=== PATIENT | male | born 1960 | race Caucasian/White ===

== ENCOUNTER → 2018-09-13 | Day surgery (SDC) | payer OTHER ==
[~2018-09-13] MED LIST: ADVAIR 500/501 EA INH; ALBUTEROL0.63 MG/3 INH; ASPIR 8181 MG PO; BC POWDER PACK1 EAC1 PO; CETIRIZINE HCL10 MG PO; COMBIVENT RESPIM4 GM IH; EFFIENT10 MG PO; FENTANYL CITRATE/PF 100MCG/2 ML INJ ONE; IOPAMIDOL 200 MG/ML 20 ML VIAL IT ONE; ISOSORBIDE MONO30 MG PO; LIDOCAINE HCL 1% 30ML-PF VIAL ONE; LIDOCAINE HCL 2% LOCAL INJ 5 ML SDV VIAL INJ ONE; LOSARTAN POTAS100 MG PO; METOPROLOL TART50 MG PO; MIDAZOLAM HCL 2 MG/2 ML VIAL ONE; NEXIUM2.5 MG PO; PRAVASTATIN SOD40 MG PO; PROAIR HFA INH8.5 GM INH; PROPOFOL IV EMULSION 10 MG/ML 20 ML VIAL ONE; SERTRALINE HCL50 MG PO; TRIAMCINOLONE ACET 40 MG/ML VIAL ONE
[2018-09-13 06:26] LABS: BASOPHILS # (AUTO) 0.1 (0.0-0.1); BASOPHILS % 1.3 % (0.0-1.0); EOSINOPHILS # (AUTO) 0.4 (0.0-0.4); EOSINOPHILS % 7.7 % (0.0-6.0); HEMATOCRIT 36.3 % (38.2-49.6); HEMOGLOBIN 11.6 g/dL (14.0-18.0); LYMPHOCYTES # (AUTO) 1.5 (1.0-3.2); LYMPHOCYTES % 27.5 % (18.0-39.1); MEAN CORPUSCULAR HEMOGLOBIN 26.1 pg (28-32); MEAN CORPUSCULAR VOLUME 81.8 fL (81-99); MONOCYTES # (AUTO) 0.6 (0.2-0.8); MONOCYTES % 10.9 % (4.4-11.3); NEUTROPHILS # (AUTO) 2.9 (2.1-6.9); NEUTROPHILS % 52.4 % (38.7-80.0); PLATELET COUNT 301 x10e3/uL (140-360); RED BLOOD COUNT 4.44 x10e6/uL (4.3-5.7); RED CELL DISTRIBUTION WIDTH 19.7 % (11.7-14.4)
[2018-09-13 08:00] VITALS: BP 120/60
== END | disposition home or self-care (01) ==
LOC: OR 05:21
PROVIDERS: ATTEND Physical Medicine & Rehabilitation Pain Medicine
DX: M47.812 Spondylosis without myelopathy or radiculopathy, cervical region (principal); M54.5 Low back pain; M25.532 Pain in left wrist; M54.12 Radiculopathy, cervical region; M85.441 Solitary bone cyst, right hand; I25.10 Atherosclerotic heart disease of native coronary artery without angina pectoris; J44.9 Chronic obstructive pulmonary disease, unspecified; I10 Essential (primary) hypertension; Z79.82 Long term (current) use of aspirin; Z95.5 Presence of coronary angioplasty implant and graft; Z87.891 Personal history of nicotine dependence
CPT/HCPCS: 36415; 64490; 64491; 64492; 85025; 93005; J2001 ×2; J2250; J2704; J3010; J3301; Q9967; 77003

== ENCOUNTER → 2018-12-27 | Day surgery (SDC) | payer OTHER ==
[2018-12-26 12:53] LABS: BASOPHILS # (AUTO) 0.1 (0.0-0.1); BASOPHILS % 0.9 % (0.0-1.0); EOSINOPHILS # (AUTO) 0.5 (0.0-0.4); EOSINOPHILS % 6.3 % (0.0-6.0); HEMATOCRIT 36.1 % (38.2-49.6); HEMOGLOBIN 11.1 g/dL (14.0-18.0); LYMPHOCYTES # (AUTO) 1.2 (1.0-3.2); LYMPHOCYTES % 15.6 % (18.0-39.1); MEAN CORPUSCULAR HGB CONC 30.7 g/dL (31-35); MEAN CORPUSCULAR VOLUME 78.1 fL (81-99); MONOCYTES # (AUTO) 0.6 (0.2-0.8); MONOCYTES % 8.2 % (4.4-11.3); NEUTROPHILS # (AUTO) 5.1 (2.1-6.9); NEUTROPHILS % 68.7 % (38.7-80.0); PLATELET COUNT 392 x10e3/uL (140-360); RED BLOOD COUNT 4.62 x10e6/uL (4.3-5.7); RED CELL DISTRIBUTION WIDTH 15.8 % (11.7-14.4)
[~2018-12-27] MED LIST changes: +BUPIVACAINE 0.25% 30ML SDV INJ ONE; -IOPAMIDOL 200 MG/ML 20 ML VIAL IT ONE; +IOPAMIDOL 300 MG/ML 15ML VIAL IT ONE
[2018-12-27 08:55] VITALS: BP 121/83
== END | disposition home or self-care (01) ==
LOC: OR 07:05
PROVIDERS: ATTEND Physical Medicine & Rehabilitation Pain Medicine
DX: M46.1 Sacroiliitis, not elsewhere classified (principal); G57.00 Lesion of sciatic nerve, unspecified lower limb; M79.18 Myalgia, other site; J44.9 Chronic obstructive pulmonary disease, unspecified; I10 Essential (primary) hypertension; K21.9 Gastro-esophageal reflux disease without esophagitis; M47.812 Spondylosis without myelopathy or radiculopathy, cervical region; M25.532 Pain in left wrist; M54.81 Occipital neuralgia; M25.841 Other specified joint disorders, right hand; R93.7 Abnormal findings on diagnostic imaging of other parts of musculoskeletal system; I25.10 Atherosclerotic heart disease of native coronary artery without angina pectoris; Z01.810 Encounter for preprocedural cardiovascular examination; Z01.812 Encounter for preprocedural laboratory examination; Z79.02 Long term (current) use of antithrombotics/antiplatelets; Z79.82 Long term (current) use of aspirin; Z95.5 Presence of coronary angioplasty implant and graft
CPT/HCPCS: 20552; G0260; 36415; 76000; 85025; 93005; J2001; J2250; J3010; J3301; Q9967

== ENCOUNTER → 2021-04-22 | Day surgery (SDC) | payer BC, OTHER ==
[2021-04-20 08:38] LABS: BASOPHILS # (AUTO) 0.1 (0.0-0.1); BASOPHILS % 1.3 % (0.0-1.0); EOSINOPHILS # (AUTO) 0.7 (0.0-0.4); EOSINOPHILS % 16.1 % (0.0-6.0); HEMATOCRIT 44.2 % (38.2-49.6); HEMOGLOBIN 15.1 g/dL (14.0-18.0); LYMPHOCYTES # (AUTO) 0.9 (1.0-3.2); LYMPHOCYTES % 19.6 % (18.0-39.1); MEAN CORPUSCULAR HEMOGLOBIN 32.8 pg (28-32); MEAN CORPUSCULAR HGB CONC 34.2 g/dL (31-35); MEAN CORPUSCULAR VOLUME 95.9 fL (81-99); MONOCYTES # (AUTO) 0.6 (0.2-0.8); MONOCYTES % 13.9 % (4.4-11.3); NEUTROPHILS # (AUTO) 2.3 (2.1-6.9); NEUTROPHILS % 48.9 % (38.7-80.0); PLATELET COUNT 223 x10e3/uL (140-360); RED BLOOD COUNT 4.61 x10e6/uL (4.3-5.7); RED CELL DISTRIBUTION WIDTH 13.9 % (11.7-14.4)
[~2021-04-22] MED LIST changes: +ATORVASTATIN CA20 MG PO; +BACLOFEN10 MG PO; -BUPIVACAINE 0.25% 30ML SDV INJ ONE; +BUPIVACAINE HCL 0.5% INJ 30 ML VIAL INJ ONE; +ESMOLOL HCL 100MG/10ML 10 MG/ML VIAL ONE; -FENTANYL CITRATE/PF 100MCG/2 ML INJ ONE; +HYDROCODON-ACE1 EAC9 PO; +IOPAMIDOL 200 MG/ML 20 ML VIAL IT ONE; -IOPAMIDOL 300 MG/ML 15ML VIAL IT ONE; -LIDOCAINE HCL 2% LOCAL INJ 5 ML SDV VIAL INJ ONE; +POVIDONE IODINE 0.05% 0.05 % ML PO ONE; -TRIAMCINOLONE ACET 40 MG/ML VIAL ONE
[2021-04-22 07:15] VITALS: BP 121/99
== END | disposition home or self-care (01) ==
LOC: OR 06:36
PROVIDERS: ATTEND Physical Medicine & Rehabilitation Pain Medicine
DX: M47.892 Other spondylosis, cervical region (principal); G89.4 Chronic pain syndrome; M46.1 Sacroiliitis, not elsewhere classified; G57.00 Lesion of sciatic nerve, unspecified lower limb; M54.81 Occipital neuralgia; J44.9 Chronic obstructive pulmonary disease, unspecified; I25.10 Atherosclerotic heart disease of native coronary artery without angina pectoris; I10 Essential (primary) hypertension; E78.5 Hyperlipidemia, unspecified; K21.9 Gastro-esophageal reflux disease without esophagitis; Z01.810 Encounter for preprocedural cardiovascular examination; Z01.812 Encounter for preprocedural laboratory examination; Z20.822 Contact with and (suspected) exposure to COVID-19; Z79.82 Long term (current) use of aspirin; Z79.899 Other long term (current) drug therapy; Z95.5 Presence of coronary angioplasty implant and graft
CPT/HCPCS: 36415; 64490; 64491; 64492; 85025; 93005; J2001; J2250; J2704; Q9967; U0002; 77003

== ENCOUNTER 2021-08-01 13:10 | Inpatient (IN) | payer BC ==
[~2021-08-01] VITALS: Ht 172.7 cm; Wt 79.4 kg
[~2021-08-01 13:10] MED LIST changes: +ATROPINE SULFATE 1 MG/ML VIAL ONE; -BUPIVACAINE HCL 0.5% INJ 30 ML VIAL INJ ONE; +DEXAMETHASONE SOD PHOS INJ 4 MG/ML SDV ONE; -ESMOLOL HCL 100MG/10ML 10 MG/ML VIAL ONE; +FENTANYL CITRATE/PF 100MCG/2 ML INJ ONE; -IOPAMIDOL 200 MG/ML 20 ML VIAL IT ONE; +KETOROLAC TROMETHAMINE 30 MG/ML VIAL ONE; -LIDOCAINE HCL 1% 30ML-PF VIAL ONE; +LIDOCAINE HCL 2% LOCAL INJ 5 ML SDV VIAL INJ ONE; +NEOSTIGMINE 1 MG/ML 10ML VIAL ONE; +ONDANSETRON HCL INJ 2MG/ML 2ML 2 MG/ML VIAL ONE; +ROCURONIUM BROMIDE 10 MG/ML 5ML VIAL IV ONE; +SEVOFLURANE INHAL SOLN 250 ML PEN BTL ONE; +SUCCINYLCHOLINE CHLORIDE 20 MG/ML 10ML VIAL ONE
[2021-08-01] MEDS ORDERED: Morphine 4mg INJECTION 4 MG/ML INJ IV STA (13:20)
[2021-08-01] MEDS ORDERED: ONDANSETRON HCL INJ 2MG/ML 2ML 2 MG/ML VIAL IV STA (13:20)
[2021-08-01] MEDS ORDERED: SODIUM CHLORIDE 0.9% 1000ML 1,000 ML IV STA ×2 (13:20→13:55)
[2021-08-01 13:41] LABS: BASOPHILS # (AUTO) 0.1 (0.0-0.1); BASOPHILS % 0.4 % (0.0-1.0); EOSINOPHILS # (AUTO) 0.2 (0.0-0.4); HEMATOCRIT 36.9 % (38.2-49.6); HEMOGLOBIN 12.3 g/dL (14.0-18.0); LYMPHOCYTES % 8.2 % (18.0-39.1); MEAN CORPUSCULAR HEMOGLOBIN 33.6 pg (28-32); MEAN CORPUSCULAR HGB CONC 33.3 g/dL (31-35); MEAN CORPUSCULAR VOLUME 100.8 fL (81-99); MONOCYTES # (AUTO) 0.8 (0.2-0.8); MONOCYTES % 6.4 % (4.4-11.3); NEUTROPHILS % 82.6 % (38.7-80.0); PLATELET COUNT 410 x10e3/uL (140-360); RED BLOOD COUNT 3.66 x10e6/uL (4.3-5.7); RED CELL DISTRIBUTION WIDTH 14.9 % (11.7-14.4)
[2021-08-01 13:52] LABS: INR 0.91; PROTHROMBIN TIME 13.1 seconds (11.9-14.5)
[2021-08-01 13:53] LABS: PARTIAL THROMBOPLASTIN TIME 29.4 seconds (23.8-35.5)
[2021-08-01 14:03] LABS: ALBUMIN 3.8 g/dL (3.5-5.0); ALBUMIN/GLOBULIN RATIO 1.2 (0.8-2.0); ANION GAP 19.6 mmol/L (8-16); CALCIUM 8.8 mg/dL (8.4-10.2); CREATININE, SERUM 0.8 mg/dL (0.72-1.25); MAGNESIUM 1.7 MG/DL (1.3-2.1); POTASSIUM 3.6 mmol/L (3.5-5.1)
[2021-08-01 14:09] LABS: CREATINE KINASE MB 1.9 ng/mL (0-5.0)
[2021-08-01] MEDS ORDERED: IOPAMIDOL 370 MG/ML 100 ML INFUS..BTL INJ ONE (14:30)
[2021-08-01] MEDS ORDERED: BENZOCAINE/TETRACAINE/BUTAMBEN AERO SPRAY 56 GM CAN TOP ONE (17:00)
[2021-08-01] MEDS ORDERED: SODIUM CHLORIDE 0.9% 1000ML 1,000 ML IV SCH (17:00)
[2021-08-01] MEDS: SODIUM CHLORIDE 0.9% 250ML IRRIG IR SCH ×2 (17:30→21:00)
[2021-08-01] MEDS: ONDANSETRON HCL INJ 2MG/ML 2ML 2 MG/ML VIAL IV PRN (17:31)
[2021-08-01] MEDS: Morphine 4mg INJECTION 4 MG/ML INJ IV PRN (17:31)
[2021-08-01 17:33] LABS: CLARITY,URINE HAZY (CLEAR); COLOR,URINE YELLOW (YELLOW); KETONES,URINE NEGATIVE (NEGATIVE); LEUKOCYTE ESTERASE ,URINE NEGATIVE (NEGATIVE); NITRITE,URINE NEGATIVE (NEGATIVE); PROTEIN,URINE DIPSTICK NEGATIVE (NEGATIVE)
[2021-08-01 17:34] LABS: URINE UROBILINOGEN 0.2 mg/dL (0.2 - 1)
[2021-08-01 17:48] LABS: BACTERIA,URINE FEW /HPF; EPITHELIAL CELLS,URINE FEW /LPF; RBC,URINE 0-5 /HPF (0-5); WBC,URINE (MAN) 0-5 /HPF (0-5)
[2021-08-01 20:00] VITALS: BP 116/70
[2021-08-01] MEDS ORDERED: ONDANSETRON HCL INJ 2MG/ML 2ML 2 MG/ML VIAL IV PRN (21:15)
[2021-08-01] MEDS: DEXTROSE 5%/LACTATED RINGERS 1,000 ML IV SCH (21:15)
[2021-08-01] MEDS ORDERED: NALOXONE HCL INJ 0.4 MG/ML AMP IV PRN (21:15)
[2021-08-01] MEDS ORDERED: ACETAMINOPHEN 1000 MG/100 ML IV PRN (21:15)
[2021-08-01] MEDS ORDERED: DIPHENHYDRAMINE HCL INJ 50 MG/ML VIAL IM PRN (21:15)
[2021-08-01] MEDS ORDERED: MORPHINE SULFATE 1 MG/ML 30ML PCA ONE (21:21)
[2021-08-01 22:15] VITALS: BP 124/68
[2021-08-01] MEDS: KETOROLAC TROMETHAMINE 30 MG/ML VIAL IV PRN (22:41)
[2021-08-02] VITALS (10 sets, daily range): BP systolic 107–144; BP diastolic 58–87
[2021-08-02] MEDS: Morphine 4mg INJECTION 4 MG/ML INJ IV PRN (01:00)
[2021-08-02] MEDS: SODIUM CHLORIDE 0.9% 250ML IRRIG IR SCH ×8 (01:00→17:32)
[2021-08-02] MEDS: MORPHINE SULFATE 1 MG/ML 30ML PCA IV PRN ×2 (05:04→21:18)
[2021-08-02] MEDS: DEXTROSE 5%/LACTATED RINGERS 1,000 ML IV SCH ×2 (05:23→14:24)
[2021-08-02 05:54] LABS: BASOPHILS % 0.2 % (0.0-1.0); HEMATOCRIT 32.6 % (38.2-49.6); HEMOGLOBIN 10.6 g/dL (14.0-18.0); LYMPHOCYTES # (AUTO) 0.3 (1.0-3.2); LYMPHOCYTES % 2.8 % (18.0-39.1); MEAN CORPUSCULAR HEMOGLOBIN 33.3 pg (28-32); MEAN CORPUSCULAR HGB CONC 32.5 g/dL (31-35); MEAN CORPUSCULAR VOLUME 102.5 fL (81-99); MONOCYTES # (AUTO) 0.5 (0.2-0.8); MONOCYTES % 4.4 % (4.4-11.3); NEUTROPHILS # (AUTO) 9.9 (2.1-6.9); PLATELET COUNT 311 x10e3/uL (140-360); RED BLOOD COUNT 3.18 x10e6/uL (4.3-5.7); RED CELL DISTRIBUTION WIDTH 15.4 % (11.7-14.4)
[2021-08-02 06:23] LABS: ALBUMIN 3.1 g/dL (3.5-5.0); ANION GAP 13.1 mmol/L (8-16); CALCIUM 8.1 mg/dL (8.4-10.2); CREATININE, SERUM 0.74 mg/dL (0.72-1.25); POTASSIUM 4.1 mmol/L (3.5-5.1)
[2021-08-02 14:56] LABS: BAND NEUTROPHILS % (MANUAL) 2 %; LYMPHOCYTES % (MANUAL) 3 % (19-48); MONOCYTES % (MANUAL) 3 % (3.4-9.0); NEUTROPHILS % (MANUAL) 92 % (40-74); PLATELET ESTIMATE ADEQUATE; PLATELET MORPHOLOGY COMMENT NORMAL; RBC MORPHOLOGY COMMENT NORMAL
[2021-08-02 14:57] LABS: POLYCHROMASIA FEW
[2021-08-03] VITALS (9 sets, daily range): BP systolic 117–155; BP diastolic 74–95
[2021-08-03] MEDS: DEXTROSE 5%/LACTATED RINGERS 1,000 ML IV SCH ×4 (01:00→21:11)
[2021-08-03] MEDS: SODIUM CHLORIDE 0.9% 250ML IRRIG IR SCH ×2 (01:15→05:15)
[2021-08-03 05:46] LABS: BASOPHILS % 0.6 % (0.0-1.0); EOSINOPHILS # (AUTO) 0.3 (0.0-0.4); EOSINOPHILS % 4.1 % (0.0-6.0); HEMATOCRIT 35.3 % (38.2-49.6); LYMPHOCYTES # (AUTO) 0.7 (1.0-3.2); LYMPHOCYTES % 9.7 % (18.0-39.1); MEAN CORPUSCULAR HEMOGLOBIN 33.5 pg (28-32); MEAN CORPUSCULAR HGB CONC 31.2 g/dL (31-35); MEAN CORPUSCULAR VOLUME 107.6 fL (81-99); MONOCYTES # (AUTO) 0.6 (0.2-0.8); NEUTROPHILS # (AUTO) 5.4 (2.1-6.9); NEUTROPHILS % 76.3 % (38.7-80.0); PLATELET COUNT 303 x10e3/uL (140-360); RED BLOOD COUNT 3.28 x10e6/uL (4.3-5.7); RED CELL DISTRIBUTION WIDTH 15.9 % (11.7-14.4)
[2021-08-03 06:11] LABS: ANION GAP 13.1 mmol/L (8-16); CALCIUM 8.6 mg/dL (8.4-10.2); CREATININE, SERUM 0.7 mg/dL (0.72-1.25); POTASSIUM 3.1 mmol/L (3.5-5.1)
[2021-08-03] MEDS ORDERED: POTASSIUM CHLORIDE 20MEQ/100ML 200 ML IV ONE (07:00)
[2021-08-03] MEDS: KETOROLAC TROMETHAMINE 30 MG/ML VIAL IV PRN (12:13)
[2021-08-03] MEDS ORDERED: ACETAMINOPHEN 1000 MG/100 ML IV ONE (14:15)
[2021-08-03] MEDS ORDERED: METOPROLOL TAR100 MG PO (16:23)
[2021-08-03] MEDS ORDERED: [UNRECOGNIZED DRUG - OTHER] INH (16:23)
[2021-08-03] MEDS ORDERED: FERROUS SULFATE PO (16:23)
[2021-08-03] MEDS ORDERED: NIFEDIPINE 60 MG PO (16:23)
[2021-08-03] MEDS ORDERED: PRAVASTATIN SOD40 MG PO (16:23)
[2021-08-03] MEDS ORDERED: MUCINEX DM ER1 EACH PO (16:23)
[2021-08-03] MEDS ORDERED: NEXIUM20 MG PO (16:23)
[2021-08-03] MEDS ORDERED: ALBUTEROL1.25 MG/3 NEB (16:23)
[2021-08-03] MEDS ORDERED: MYSOLINE50 MG PO (16:23)
[2021-08-03] MEDS: MORPHINE SULFATE 1 MG/ML 30ML PCA IV PRN (16:46)
[2021-08-04] VITALS (7 sets, daily range): BP systolic 131–159; BP diastolic 89–106
[2021-08-04] MEDS: MORPHINE SULFATE 1 MG/ML 30ML PCA IV PRN ×2 (02:10→12:44)
[2021-08-04] MEDS: DEXTROSE 5%/LACTATED RINGERS 1,000 ML IV SCH ×3 (04:14→23:54)
[2021-08-04 05:02] LABS: BASOPHILS % 0.4 % (0.0-1.0); EOSINOPHILS # (AUTO) 0.4 (0.0-0.4); EOSINOPHILS % 5.7 % (0.0-6.0); HEMOGLOBIN 10.6 g/dL (14.0-18.0); LYMPHOCYTES # (AUTO) 0.6 (1.0-3.2); LYMPHOCYTES % 8.9 % (18.0-39.1); MEAN CORPUSCULAR HEMOGLOBIN 33.5 pg (28-32); MEAN CORPUSCULAR HGB CONC 31.2 g/dL (31-35); MEAN CORPUSCULAR VOLUME 107.6 fL (81-99); MONOCYTES # (AUTO) 0.8 (0.2-0.8); MONOCYTES % 11.5 % (4.4-11.3); NEUTROPHILS # (AUTO) 5.2 (2.1-6.9); NEUTROPHILS % 73.2 % (38.7-80.0); PLATELET COUNT 246 x10e3/uL (140-360); RED BLOOD COUNT 3.16 x10e6/uL (4.3-5.7); RED CELL DISTRIBUTION WIDTH 14.8 % (11.7-14.4)
[2021-08-04 05:23] LABS: ANION GAP 14.6 mmol/L (8-16); BLOOD UREA NITROGEN < 5 mg/dL (7-26); CALCIUM 9.1 mg/dL (8.4-10.2); CARBON DIOXIDE 31 mmol/L (22-29); CHLORIDE 99 mmol/L (98-107); CREATININE, SERUM 0.71 mg/dL (0.72-1.25); GLUCOSE 107 mg/dL (74-118); POTASSIUM 3.6 mmol/L (3.5-5.1); SODIUM 141 mmol/L (136-145)
[2021-08-04 05:24] LABS: BUN/CREATININE RATIO 7 (6-25)
[2021-08-04] MEDS: ACETAMINOPHEN 1000 MG/100 ML IV PRN (14:43)
[2021-08-04] MEDS ORDERED: ACETAMINOPHEN 1000 MG/100 ML IV SCH (18:00)
[2021-08-04] MEDS: HYDROCODONE/APAP 5MG-325MG TAB PO PRN ×2 (18:03→22:17)
[2021-08-05] VITALS (8 sets, daily range): BP systolic 125–161; BP diastolic 95–101
[2021-08-05] MEDS: DEXTROSE 5%/LACTATED RINGERS 1,000 ML IV SCH ×2 (00:45→14:01)
[2021-08-05] MEDS: HYDROCODONE/APAP 5MG-325MG TAB PO PRN (04:00)
[2021-08-05] MEDS: ONDANSETRON HCL INJ 2MG/ML 2ML 2 MG/ML VIAL IV PRN ×4 (06:40→21:09)
[2021-08-05] MEDS: Morphine 4mg INJECTION 4 MG/ML INJ IV PRN ×5 (08:06→21:09)
[2021-08-05] MEDS: METOCLOPRAMIDE HCL 10 MG/2ML VIAL IV SCH ×2 (11:29→17:51)
[2021-08-05] MEDS: SODIUM CHLORIDE 0.9% 250ML IRRIG IR SCH ×3 (12:00→20:30)
[2021-08-05] MEDS: METOPROLOL TARTRATE INJ 1 MG/ML VIAL IV PRN ×2 (12:13→18:05)
[2021-08-05] MEDS ORDERED: ALBUTEROL SULF 0.083% NEB SOLN 3 ML NEB NEB PRN (13:30)
[2021-08-05] MEDS ORDERED: NON-FORMULARY MEDICATION (Albuterol Sulfate 1 INH) NEB PRN (13:30)
[2021-08-06] VITALS (9 sets, daily range): BP systolic 142–167; BP diastolic 90–109
[2021-08-06] MEDS: Morphine 4mg INJECTION 4 MG/ML INJ IV PRN ×3 (00:48→21:06)
[2021-08-06] MEDS: METOCLOPRAMIDE HCL 10 MG/2ML VIAL IV SCH ×4 (00:48→17:59)
[2021-08-06] MEDS: SODIUM CHLORIDE 0.9% 250ML IRRIG IR SCH ×6 (00:48→21:06)
[2021-08-06] MEDS: METOPROLOL TARTRATE INJ 1 MG/ML VIAL IV PRN (00:49)
[2021-08-06 05:03] LABS: BASOPHILS % 0.2 % (0.0-1.0); EOSINOPHILS % 0.3 % (0.0-6.0); HEMATOCRIT 36.3 % (38.2-49.6); HEMOGLOBIN 11.8 g/dL (14.0-18.0); LYMPHOCYTES # (AUTO) 0.4 (1.0-3.2); LYMPHOCYTES % 3.6 % (18.0-39.1); MEAN CORPUSCULAR HEMOGLOBIN 33.3 pg (28-32); MEAN CORPUSCULAR HGB CONC 32.5 g/dL (31-35); MEAN CORPUSCULAR VOLUME 102.5 fL (81-99); MONOCYTES # (AUTO) 1.3 (0.2-0.8); MONOCYTES % 11.7 % (4.4-11.3); NEUTROPHILS # (AUTO) 9.3 (2.1-6.9); NEUTROPHILS % 83.8 % (38.7-80.0); PLATELET COUNT 350 x10e3/uL (140-360); RED BLOOD COUNT 3.54 x10e6/uL (4.3-5.7); RED CELL DISTRIBUTION WIDTH 13.9 % (11.7-14.4)
[2021-08-06 05:39] LABS: CALCIUM 9.2 mg/dL (8.4-10.2); CREATININE, SERUM 0.7 mg/dL (0.72-1.25); MAGNESIUM 1.7 MG/DL (1.3-2.1)
[2021-08-06] MEDS: ACETAMINOPHEN 1000 MG/100 ML IV PRN ×3 (09:23→15:58)
[2021-08-06] MEDS: DEXTROSE 5%/LACTATED RINGERS 1,000 ML IV SCH ×2 (09:49→12:45)
[2021-08-06] MEDS: POTASSIUM CHLORIDE 20MEQ/100ML 200 ML IV SCH ×2 (14:59→20:14)
[2021-08-07] VITALS (7 sets, daily range): BP systolic 143–154; BP diastolic 93–96
[2021-08-07] MEDS: METOCLOPRAMIDE HCL 10 MG/2ML VIAL IV SCH ×3 (00:47→12:00)
[2021-08-07] MEDS: SODIUM CHLORIDE 0.9% 250ML IRRIG IR SCH ×3 (04:00→07:49)
[2021-08-07 05:37] LABS: BASOPHILS # (AUTO) 0.1 (0.0-0.1); BASOPHILS % 0.9 % (0.0-1.0); EOSINOPHILS # (AUTO) 0.4 (0.0-0.4); EOSINOPHILS % 5.7 % (0.0-6.0); HEMATOCRIT 31.7 % (38.2-49.6); HEMOGLOBIN 9.8 g/dL (14.0-18.0); LYMPHOCYTES # (AUTO) 0.7 (1.0-3.2); LYMPHOCYTES % 9.5 % (18.0-39.1); MEAN CORPUSCULAR HEMOGLOBIN 33.8 pg (28-32); MEAN CORPUSCULAR HGB CONC 30.9 g/dL (31-35); MEAN CORPUSCULAR VOLUME 109.3 fL (81-99); MONOCYTES % 14.1 % (4.4-11.3); NEUTROPHILS # (AUTO) 4.7 (2.1-6.9); NEUTROPHILS % 69.4 % (38.7-80.0); PLATELET COUNT 159 x10e3/uL (140-360); RED CELL DISTRIBUTION WIDTH 14.6 % (11.7-14.4)
[2021-08-07] MEDS: DEXTROSE 5%/LACTATED RINGERS 1,000 ML IV SCH (05:43)
[2021-08-07 06:00] LABS: CALCIUM 8.5 mg/dL (8.4-10.2); CREATININE, SERUM 0.65 mg/dL (0.72-1.25); MAGNESIUM 1.9 MG/DL (1.3-2.1)
[2021-08-07] MEDS ORDERED: POTASSIUM CHLORIDE 20 MEQ TAB CR PO NR (09:00)
[2021-08-07] MEDS ORDERED: REGLAN5 MG PO (15:06)
[2021-08-07] MEDS ORDERED: ONDANSETRON ODT4 MG PO (15:06)
== END 2021-08-07 15:40 | disposition home or self-care (01) | DRG 337 ==
LOC: ER 13:14 → ERHOLD 17:03 → MED/SURG2 18:10 → MED/SURG 21:41
PROVIDERS: ADMIT Internal Medicine; ATTEND Internal Medicine
PROC: 0DNU0ZZ Release Omentum, Open Approach (ICD-10-PCS; 2021-08-01)
PROC: 0DN80ZZ Release Small Intestine, Open Approach (ICD-10-PCS; principal; 2021-08-01 20:04)
DX: K56.50 Intestinal adhesions [bands], unspecified as to partial versus complete obstruction (principal); I25.10 Atherosclerotic heart disease of native coronary artery without angina pectoris; Z95.5 Presence of coronary angioplasty implant and graft; J44.9 Chronic obstructive pulmonary disease, unspecified; Z87.891 Personal history of nicotine dependence; Z79.82 Long term (current) use of aspirin; Z20.822 Contact with and (suspected) exposure to COVID-19; E78.5 Hyperlipidemia, unspecified; R51.9 Headache, unspecified; E87.6 Hypokalemia
CPT/HCPCS: 36415; 71045; 74018; 74177; 80048; 80053; 81001; 82550; 82553; 82948; 83036; 83605; 83690; 83735; 84484; 85025; 85610; 85730; 87040; 87071; 87086; 87205; 93005; 94799; 96361; 99285; C1713; J0330; J0461; J1100; J1200; J1885; J2001; J2250; J2270; J2405; J2543; J2710; J2765; J3010; J3480; J7030; Q9967

== ENCOUNTER 2021-11-10 15:16 | Emergency (ER) | payer BC, OTHER ==
[~2021-11-10] VITALS: Ht 172.7 cm; Wt 79.4 kg
[~2021-11-10 15:16] MED LIST changes: +ALBUTEROL1.25 MG/3 NEB; -ATROPINE SULFATE 1 MG/ML VIAL ONE; -DEXAMETHASONE SOD PHOS INJ 4 MG/ML SDV ONE; -FENTANYL CITRATE/PF 100MCG/2 ML INJ ONE; +FERROUS SULFATE PO; -KETOROLAC TROMETHAMINE 30 MG/ML VIAL ONE; -LIDOCAINE HCL 2% LOCAL INJ 5 ML SDV VIAL INJ ONE; +METOPROLOL TAR100 MG PO; -MIDAZOLAM HCL 2 MG/2 ML VIAL ONE; +MUCINEX DM ER1 EACH PO; +MYSOLINE50 MG PO; -NEOSTIGMINE 1 MG/ML 10ML VIAL ONE; +NEXIUM20 MG PO; +NIFEDIPINE 60 MG PO; -ONDANSETRON HCL INJ 2MG/ML 2ML 2 MG/ML VIAL ONE; +ONDANSETRON ODT4 MG PO; -POVIDONE IODINE 0.05% 0.05 % ML PO ONE; -PROPOFOL IV EMULSION 10 MG/ML 20 ML VIAL ONE; +REGLAN5 MG PO; -ROCURONIUM BROMIDE 10 MG/ML 5ML VIAL IV ONE; -SEVOFLURANE INHAL SOLN 250 ML PEN BTL ONE; -SUCCINYLCHOLINE CHLORIDE 20 MG/ML 10ML VIAL ONE; +[UNRECOGNIZED DRUG - OTHER] INH
[2021-11-10] MEDS ORDERED: LIDOCAINE1 EAC1 EXT (16:18)
[2021-11-10 16:49] VITALS: BP 115/75
== END 2021-11-10 16:51 | disposition home or self-care (01) ==
LOC: ER 15:23
DX: R07.81 Pleurodynia (principal); S20.212A Contusion of left front wall of thorax, initial encounter; W18.39XA Other fall on same level, initial encounter; Y92.89 Other specified places as the place of occurrence of the external cause; I10 Essential (primary) hypertension; J44.9 Chronic obstructive pulmonary disease, unspecified; E78.5 Hyperlipidemia, unspecified; I25.10 Atherosclerotic heart disease of native coronary artery without angina pectoris
CPT/HCPCS: 71101; 93005; 99283

== ENCOUNTER → 2022-02-24 | Day surgery (SDC) | payer BC ==
[2022-02-21 09:55] LABS: BASOPHILS # (AUTO) 0.1 (0.0-0.1); BASOPHILS % 1.3 % (0.0-1.0); EOSINOPHILS # (AUTO) 0.5 (0.0-0.4); EOSINOPHILS % 7.7 % (0.0-6.0); HEMATOCRIT 46.4 % (38.2-49.6); HEMOGLOBIN 15.1 g/dL (14.0-18.0); LYMPHOCYTES # (AUTO) 0.8 (1.0-3.2); MEAN CORPUSCULAR HGB CONC 32.5 g/dL (31-35); MEAN CORPUSCULAR VOLUME 101.5 fL (81-99); MONOCYTES # (AUTO) 0.7 (0.2-0.8); MONOCYTES % 9.4 % (4.4-11.3); NEUTROPHILS # (AUTO) 4.9 (2.1-6.9); NEUTROPHILS % 70.2 % (38.7-80.0); PLATELET COUNT 309 x10e3/uL (140-360); RED BLOOD COUNT 4.57 x10e6/uL (4.3-5.7); RED CELL DISTRIBUTION WIDTH 13.1 % (11.7-14.4)
[~2022-02-24] MED LIST changes: +BUPIVACAINE HCL 0.5% INJ 30 ML VIAL INJ ONE; +IOPAMIDOL 200 MG/ML 20 ML VIAL IT ONE; +LIDOCAINE HCL 1% 30ML-PF VIAL ONE; +LIDOCAINE1 EAC1 EXT; +LORTAB 10 MG-3473 ML PO; +POVIDONE IODINE 0.05% 0.05 % ML PO ONE; +PROPOFOL IV EMULSION 10 MG/ML 20 ML VIAL ONE; +TRIAMCINOLONE ACET 40 MG/ML VIAL ONE
[2022-02-24 07:20] VITALS: BP 108/78
== END | disposition home or self-care (01) ==
LOC: OR 05:52
PROVIDERS: ATTEND Physical Medicine & Rehabilitation Pain Medicine
DX: M18.12 Unilateral primary osteoarthritis of first carpometacarpal joint, left hand (principal); M47.892 Other spondylosis, cervical region; M54.12 Radiculopathy, cervical region; M46.1 Sacroiliitis, not elsewhere classified; J44.9 Chronic obstructive pulmonary disease, unspecified; I25.10 Atherosclerotic heart disease of native coronary artery without angina pectoris; I10 Essential (primary) hypertension; E78.5 Hyperlipidemia, unspecified; K21.9 Gastro-esophageal reflux disease without esophagitis; Z01.810 Encounter for preprocedural cardiovascular examination; Z01.812 Encounter for preprocedural laboratory examination; Z79.02 Long term (current) use of antithrombotics/antiplatelets; Z79.82 Long term (current) use of aspirin; Z79.899 Other long term (current) drug therapy; Z98.61 Coronary angioplasty status
CPT/HCPCS: 36415; 77002; 77003; 85025; 93005; J2001; J3301; Q9967

== ENCOUNTER 2022-05-09 13:49 | Emergency (ER) | payer BC ==
[~2022-05-09] VITALS: Ht 172.7 cm; Wt 79.4 kg
[~2022-05-09 13:49] MED LIST changes: -BUPIVACAINE HCL 0.5% INJ 30 ML VIAL INJ ONE; -IOPAMIDOL 200 MG/ML 20 ML VIAL IT ONE; -LIDOCAINE HCL 1% 30ML-PF VIAL ONE; -POVIDONE IODINE 0.05% 0.05 % ML PO ONE; -PROPOFOL IV EMULSION 10 MG/ML 20 ML VIAL ONE; -TRIAMCINOLONE ACET 40 MG/ML VIAL ONE
[2022-05-09] MEDS ORDERED: DEXAMETHASONE SOD PHOS 10 MG/1 ML VIAL IV ONE (14:00)
[2022-05-09] MEDS ORDERED: ALBUTEROL/IPRATROPIUM 3 ML NEB NEB ONE (14:00)
[2022-05-09] MEDS ORDERED: IPRATROPIUM BROMIDE 0.02% 2.5 ML NEB NEB ONE (14:15)
[2022-05-09] MEDS ORDERED: ALBUTEROL SULF 0.083% NEB SOLN 3 ML NEB NEB ONE (14:15)
[2022-05-09 14:23] LABS: BASOPHILS # (AUTO) 0.1 (0.0-0.1); BASOPHILS % 0.9 % (0.0-1.0); EOSINOPHILS # (AUTO) 0.5 (0.0-0.4); EOSINOPHILS % 6.1 % (0.0-6.0); HEMATOCRIT 45.7 % (38.2-49.6); HEMOGLOBIN 15.4 g/dL (14.0-18.0); LYMPHOCYTES # (AUTO) 1.1 (1.0-3.2); LYMPHOCYTES % 14.7 % (18.0-39.1); MEAN CORPUSCULAR HEMOGLOBIN 32.7 pg (28-32); MEAN CORPUSCULAR HGB CONC 33.7 g/dL (31-35); MONOCYTES # (AUTO) 0.9 (0.2-0.8); MONOCYTES % 12.2 % (4.4-11.3); PLATELET COUNT 337 x10e3/uL (140-360); RED BLOOD COUNT 4.71 x10e6/uL (4.3-5.7); RED CELL DISTRIBUTION WIDTH 13.4 % (11.7-14.4)
[2022-05-09 14:39] LABS: ALBUMIN 4.3 g/dL (3.5-5.0); ALBUMIN/GLOBULIN RATIO 1.1 (0.8-2.0); ANION GAP 23.1 mmol/L (8-16); CALCIUM 9.4 mg/dL (8.4-10.2); CREATININE, SERUM 0.66 mg/dL (0.72-1.25); POTASSIUM 3.1 mmol/L (3.5-5.1)
[2022-05-09] MEDS ORDERED: LACTATED RINGER'S 1,000 ML INJ ONE (15:00)
[2022-05-09] MEDS ORDERED: IOPAMIDOL 370 MG/ML 100 ML INFUS..BTL INJ ONE (15:22)
[2022-05-09] MEDS ORDERED: LORAZEPAM INJ 2 MG/ML VIAL IV ONE (15:45)
[2022-05-09] MEDS ORDERED: LORAZEPAM INJ 2 MG/ML VIAL ONE (15:50)
[2022-05-09] MEDS ORDERED: KETOROLAC TROMETHAMINE 30 MG/ML VIAL IV STA (16:02)
[2022-05-09] MEDS ORDERED: DOXYCYCLINE HY100 MG PO (17:11)
[2022-05-09 17:24] VITALS: BP 124/85
== END 2022-05-09 17:26 | disposition home or self-care (01) ==
LOC: ER 13:59
DX: J44.1 Chronic obstructive pulmonary disease with (acute) exacerbation (principal); I10 Essential (primary) hypertension; I25.10 Atherosclerotic heart disease of native coronary artery without angina pectoris; E78.5 Hyperlipidemia, unspecified; Z20.822 Contact with and (suspected) exposure to COVID-19; Z79.82 Long term (current) use of aspirin; Z79.899 Other long term (current) drug therapy; Z87.891 Personal history of nicotine dependence
CPT/HCPCS: 36415; 71045; 71260; 80053; 83605; 83880; 84484; 85025; 85379; 87040; 93005; 94799; 99284; J1100; J1885; J2060; J7121; Q9967; U0002

== ENCOUNTER 2022-06-07 15:43 | Inpatient (IN) | payer BC ==
[~2022-06-07] VITALS: Ht 172.7 cm; Wt 77.6 kg
[~2022-06-07 15:43] MED LIST changes: +DOXYCYCLINE HY100 MG PO
[2022-06-07 16:14] LABS: BASOPHILS # (AUTO) 0.1 (0.0-0.1); BASOPHILS % 0.9 % (0.0-1.0); EOSINOPHILS # (AUTO) 0.7 (0.0-0.4); EOSINOPHILS % 7.3 % (0.0-6.0); HEMOGLOBIN 15.7 g/dL (14.0-18.0); LYMPHOCYTES % 10.6 % (18.0-39.1); MEAN CORPUSCULAR HEMOGLOBIN 33.5 pg (28-32); MEAN CORPUSCULAR HGB CONC 34.1 g/dL (31-35); MEAN CORPUSCULAR VOLUME 98.1 fL (81-99); MONOCYTES # (AUTO) 1.2 (0.2-0.8); MONOCYTES % 12.5 % (4.4-11.3); NEUTROPHILS # (AUTO) 6.6 (2.1-6.9); NEUTROPHILS % 68.5 % (38.7-80.0); PLATELET COUNT 353 x10e3/uL (140-360); RED BLOOD COUNT 4.69 x10e6/uL (4.3-5.7); RED CELL DISTRIBUTION WIDTH 13.4 % (11.7-14.4)
[2022-06-07] MEDS ORDERED: ASPIRIN 81 MG CHEW TAB PO ONE ×2 (16:15→17:45)
[2022-06-07] MEDS ORDERED: LORAZEPAM INJ 2 MG/ML VIAL IV ONE ×2 (16:15→16:45)
[2022-06-07] MEDS ORDERED: LACTATED RINGER'S 500 ML IV ONE (16:15)
[2022-06-07 16:17] LABS: INR 0.9; PROTHROMBIN TIME 12.6 seconds (11.9-14.5)
[2022-06-07 16:18] LABS: PARTIAL THROMBOPLASTIN TIME 29.7 seconds (23.8-35.5)
[2022-06-07 16:26] LABS: ALANINE AMINOTRANSFERASE 24 IU/L (0-55); ALBUMIN 4.8 g/dL (3.5-5.0); ALBUMIN/GLOBULIN RATIO 1.2 (0.8-2.0); ALKALINE PHOSPHATASE 63 IU/L (40-150); ANION GAP 23.5 mmol/L (8-16); BLOOD UREA NITROGEN 12 mg/dL (7-26); BUN/CREATININE RATIO 13 (6-25); CALCIUM 10.4 mg/dL (8.4-10.2); CARBON DIOXIDE 23 mmol/L (22-29); CHLORIDE 95 mmol/L (98-107); CREATINE KINASE 169 IU/L (30-200); CREATININE, SERUM 0.89 mg/dL (0.72-1.25); GLUCOSE 98 mg/dL (74-118); POTASSIUM 3.5 mmol/L (3.5-5.1); SODIUM 138 mmol/L (136-145)
[2022-06-07] MEDS ORDERED: IOPAMIDOL 370 MG/ML 100 ML INFUS..BTL INJ ONE (16:28)
[2022-06-07 16:46] LABS: THYROID STIMULATING HORMONE 0.828 uIU/mL (0.350-4.940)
[2022-06-07] MEDS ORDERED: SODIUM CHLORIDE FLUSH 10 ML SYR INJ PRN (17:45)
[2022-06-07] MEDS ORDERED: ASPIRIN 325 MG TAB PO ONE (17:45)
[2022-06-07] MEDS ORDERED: METOPROLOL TARTRATE INJ 1 MG/ML VIAL IV ONE (17:45)
[2022-06-07] MEDS: METOPROLOL TARTRATE 25 MG TAB PO SCH (18:31)
[2022-06-07 23:32] VITALS: BP 139/88
[2022-06-08] MEDS ORDERED: ONDANSETRON HCL INJ 2MG/ML 2ML 2 MG/ML VIAL IV PRN (02:15)
[2022-06-08] MEDS ORDERED: BENZONATATE 100 MG CAP PO ONE (02:15)
[2022-06-08] MEDS ORDERED: METOPROLOL TARTRATE INJ 1 MG/ML VIAL IV PRN (02:15)
[2022-06-08] MEDS ORDERED: POLYETHYLENE GLYCOL 3350 17 GM PACK PO PRN (02:15)
[2022-06-08] MEDS ORDERED: LORAZEPAM 0.5 MG TAB PO PRN (02:15)
[2022-06-08] MEDS ORDERED: TRELEGY INH SCH (02:15)
[2022-06-08] MEDS ORDERED: ACETAMINOPHEN 325 MG TAB PO PRN (02:15)
[2022-06-08] MEDS ORDERED: ALBUTEROL SULFATE HFA 8GM INHALATION AEROSOL INH PRN (02:30)
[2022-06-08] MEDS ORDERED: POTASSIUM CHLORIDE 20 MEQ TAB CR PO ONE (02:30)
[2022-06-08 02:44] VITALS: BP 143/93
[2022-06-08] MEDS: METOPROLOL TARTRATE 50 MG TAB PO SCH ×2 (02:55→14:15)
[2022-06-08] MEDS: NIFEDIPINE CR 30 MG TAB PO SCH ×3 (02:56→16:19)
[2022-06-08] MEDS: ISOSORBIDE MONONITRATE 30 MG TAB CR PO SCH ×3 (02:57→16:19)
[2022-06-08] MEDS: ALBUTEROL SULF 0.083% NEB SOLN 3 ML NEB NEB SCH ×6 (03:00→22:12)
[2022-06-08] MEDS: IPRATROPIUM BROMIDE 0.02% 2.5 ML NEB NEB SCH ×6 (03:00→22:12)
[2022-06-08 06:09] LABS: BASOPHILS # (AUTO) 0.1 (0.0-0.1); BASOPHILS % 1.1 % (0.0-1.0); EOSINOPHILS # (AUTO) 0.8 (0.0-0.4); EOSINOPHILS % 12.6 % (0.0-6.0); HEMATOCRIT 39.9 % (38.2-49.6); HEMOGLOBIN 13.1 g/dL (14.0-18.0); LYMPHOCYTES # (AUTO) 0.7 (1.0-3.2); LYMPHOCYTES % 10.2 % (18.0-39.1); MEAN CORPUSCULAR HEMOGLOBIN 32.5 pg (28-32); MEAN CORPUSCULAR HGB CONC 32.8 g/dL (31-35); MONOCYTES % 15.4 % (4.4-11.3); NEUTROPHILS # (AUTO) 3.9 (2.1-6.9); NEUTROPHILS % 60.4 % (38.7-80.0); PLATELET COUNT 304 x10e3/uL (140-360); RED BLOOD COUNT 4.03 x10e6/uL (4.3-5.7); RED CELL DISTRIBUTION WIDTH 13.2 % (11.7-14.4)
[2022-06-08 06:44] LABS: ANION GAP 16.7 mmol/L (8-16); CALCIUM 9.2 mg/dL (8.4-10.2); CREATININE, SERUM 0.68 mg/dL (0.72-1.25); MAGNESIUM 1.7 MG/DL (1.3-2.1); PHOSPHORUS 3.5 MG/DL (2.3-4.7); POTASSIUM 3.7 mmol/L (3.5-5.1)
[2022-06-08 07:06] LABS: CHOL/HDL RATIO 2.7 (3.9-4.7); THYROID STIMULATING HORMONE 0.861 uIU/mL (0.350-4.940)
[2022-06-08 07:29] LABS: CREATINE KINASE MB 3.7 ng/mL (0-5.0)
[2022-06-08] MEDS: FAMOTIDINE 20 MG TAB PO SCH ×2 (08:21→16:18)
[2022-06-08] MEDS: GUAIFENESIN 600MG/DEXTROMETHORPHAN 30MG TABSR PO SCH (08:21)
[2022-06-08] MEDS: PRIMIDONE 50 MG TAB PO SCH (08:22)
[2022-06-08] MEDS: THIAMINE HCL 100 MG TAB PO SCH (08:22)
[2022-06-08] MEDS: LOSARTAN POTASSIUM 100 MG TAB PO SCH (08:22)
[2022-06-08] MEDS: MULTIVITAMINS/MINERALS TAB PO SCH (08:23)
[2022-06-08] MEDS: FERROUS SULFATE 325 MG TAB PO SCH (08:23)
[2022-06-08] MEDS: PANTOPRAZOLE SOD 40 MG TABEC PO SCH (08:23)
[2022-06-08] MEDS: ASPIRIN 81 MG CHEW TAB PO SCH (08:23)
[2022-06-08] MEDS: FOLIC ACID 1 MG TAB PO SCH (08:23)
[2022-06-08] MEDS: METOPROLOL TARTRATE 25 MG TAB PO SCH ×2 (08:24→15:10)
[2022-06-08] MEDS: DOCUSATE SODIUM 100 MG CAP PO SCH ×2 (08:25→16:21)
[2022-06-08 08:45] VITALS: BP 149/102
[2022-06-08 08:46] VITALS: BP 149/102
[2022-06-08] MEDS ORDERED: ASPIRIN 325 MG TAB EC PO SCH (09:00)
[2022-06-08] MEDS: LORAZEPAM 0.5 MG TAB PO PRN ×2 (11:28→17:20)
[2022-06-08 11:55] VITALS: BP 123/82
[2022-06-08 14:36] LABS: CREATINE KINASE MB 3.4 ng/mL (0-5.0)
[2022-06-08] MEDS: BENZONATATE 100 MG CAP PO PRN (15:10)
[2022-06-08 16:33] VITALS: BP 138/88
[2022-06-08 20:00] VITALS: BP 131/83
[2022-06-08] MEDS: MELATONIN 3 MG TAB PO SCH (22:00)
[2022-06-08] MEDS: PRAVASTATIN 20 MG TAB PO SCH (22:00)
[2022-06-08] MEDS: HYDROCODONE BIT/ACETAMINOPHEN 2.5 MG/108MG PER 5 ML SOLUTION PO PRN (22:07)
[2022-06-09] VITALS (8 sets, daily range): BP systolic 106–137; BP diastolic 68–102
[2022-06-09] MEDS: IPRATROPIUM BROMIDE 0.02% 2.5 ML NEB NEB SCH ×6 (01:48→23:25)
[2022-06-09] MEDS: ALBUTEROL SULF 0.083% NEB SOLN 3 ML NEB NEB SCH ×6 (01:48→23:25)
[2022-06-09] MEDS: LORAZEPAM 0.5 MG TAB PO PRN ×4 (02:40→20:34)
[2022-06-09] MEDS: METOPROLOL TARTRATE 50 MG TAB PO SCH (02:51)
[2022-06-09] MEDS: BENZONATATE 100 MG CAP PO PRN ×2 (06:06→20:34)
[2022-06-09] MEDS: HYDROCODONE BIT/ACETAMINOPHEN 2.5 MG/108MG PER 5 ML SOLUTION PO PRN ×2 (06:09→13:18)
[2022-06-09] MEDS: THIAMINE HCL 100 MG TAB PO SCH (08:25)
[2022-06-09] MEDS: NIFEDIPINE CR 30 MG TAB PO SCH ×2 (08:26→16:34)
[2022-06-09] MEDS: LOSARTAN POTASSIUM 100 MG TAB PO SCH (08:27)
[2022-06-09] MEDS: FAMOTIDINE 20 MG TAB PO SCH ×2 (08:27→16:32)
[2022-06-09] MEDS: ISOSORBIDE MONONITRATE 30 MG TAB CR PO SCH ×2 (08:27→16:32)
[2022-06-09] MEDS: FOLIC ACID 1 MG TAB PO SCH (08:27)
[2022-06-09] MEDS: ASPIRIN 81 MG CHEW TAB PO SCH (08:28)
[2022-06-09] MEDS: GUAIFENESIN 600MG/DEXTROMETHORPHAN 30MG TABSR PO SCH (08:28)
[2022-06-09] MEDS: PRIMIDONE 50 MG TAB PO SCH (08:28)
[2022-06-09] MEDS: MULTIVITAMINS/MINERALS TAB PO SCH (08:28)
[2022-06-09] MEDS: METOPROLOL TARTRATE 25 MG TAB PO SCH (08:28)
[2022-06-09] MEDS: FERROUS SULFATE 325 MG TAB PO SCH (08:28)
[2022-06-09] MEDS: PANTOPRAZOLE SOD 40 MG TABEC PO SCH (08:28)
[2022-06-09] MEDS: DOCUSATE SODIUM 100 MG CAP PO SCH ×2 (09:00→17:00)
[2022-06-09] MEDS ORDERED: METHYLPREDNISOLONE SOD SUCC 125 MG/2ML VIAL IV ONE (11:00)
[2022-06-09] MEDS ORDERED: SODIUM CHLORIDE 0.9% 250ML 250 ML ONE (13:34)
[2022-06-09] MEDS ORDERED: ONDANSETRON HCL 4 MG ORAL DISINTEGRATING TAB PO PRN (14:15)
[2022-06-09] MEDS: DILTIAZEM HCL ER 120 MG CAP PO SCH (16:33)
[2022-06-09] MEDS: PRAVASTATIN 20 MG TAB PO SCH (20:34)
[2022-06-09] MEDS: MELATONIN 3 MG TAB PO SCH (20:35)
[2022-06-10] VITALS: BP 103/67
[2022-06-10] MEDS: IPRATROPIUM BROMIDE 0.02% 2.5 ML NEB NEB SCH ×4 (03:30→14:00)
[2022-06-10] MEDS: ALBUTEROL SULF 0.083% NEB SOLN 3 ML NEB NEB SCH ×4 (03:30→14:30)
[2022-06-10 04:00] VITALS: BP 119/74
[2022-06-10] MEDS: LORAZEPAM 0.5 MG TAB PO PRN (04:14)
[2022-06-10] MEDS: BENZONATATE 100 MG CAP PO PRN (04:14)
[2022-06-10 05:55] LABS: BASOPHILS % 0.4 % (0.0-1.0); EOSINOPHILS % 0.2 % (0.0-6.0); HEMATOCRIT 37.4 % (38.2-49.6); HEMOGLOBIN 12.3 g/dL (14.0-18.0); LYMPHOCYTES # (AUTO) 0.6 (1.0-3.2); LYMPHOCYTES % 11.2 % (18.0-39.1); MEAN CORPUSCULAR HEMOGLOBIN 32.7 pg (28-32); MEAN CORPUSCULAR HGB CONC 32.9 g/dL (31-35); MEAN CORPUSCULAR VOLUME 99.5 fL (81-99); MONOCYTES # (AUTO) 0.5 (0.2-0.8); MONOCYTES % 9.5 % (4.4-11.3); NEUTROPHILS # (AUTO) 4.3 (2.1-6.9); NEUTROPHILS % 78.3 % (38.7-80.0); PLATELET COUNT 306 x10e3/uL (140-360); RED BLOOD COUNT 3.76 x10e6/uL (4.3-5.7); RED CELL DISTRIBUTION WIDTH 12.3 % (11.7-14.4)
[2022-06-10 06:15] LABS: ANION GAP 16.6 mmol/L (8-16); CALCIUM 9.2 mg/dL (8.4-10.2); CREATININE, SERUM 0.69 mg/dL (0.72-1.25); POTASSIUM 3.6 mmol/L (3.5-5.1)
[2022-06-10 08:17] VITALS: BP 105/69
[2022-06-10] MEDS: DOCUSATE SODIUM 100 MG CAP PO SCH (09:00)
[2022-06-10] MEDS ORDERED: MUPIROCIN 2% OINT 22 GM TUBE TOP SCH (09:00)
[2022-06-10 09:08] VITALS: BP 105/69
[2022-06-10] MEDS: FAMOTIDINE 20 MG TAB PO SCH (09:25)
[2022-06-10] MEDS: NIFEDIPINE CR 30 MG TAB PO SCH (09:25)
[2022-06-10] MEDS: PRIMIDONE 50 MG TAB PO SCH (09:25)
[2022-06-10] MEDS: ISOSORBIDE MONONITRATE 30 MG TAB CR PO SCH (09:25)
[2022-06-10] MEDS: THIAMINE HCL 100 MG TAB PO SCH (09:25)
[2022-06-10] MEDS: FOLIC ACID 1 MG TAB PO SCH (09:25)
[2022-06-10] MEDS: ASPIRIN 81 MG CHEW TAB PO SCH (09:25)
[2022-06-10] MEDS: LOSARTAN POTASSIUM 100 MG TAB PO SCH (09:26)
[2022-06-10] MEDS: PANTOPRAZOLE SOD 40 MG TABEC PO SCH (09:26)
[2022-06-10] MEDS: GUAIFENESIN 600MG/DEXTROMETHORPHAN 30MG TABSR PO SCH (09:26)
[2022-06-10] MEDS: FERROUS SULFATE 325 MG TAB PO SCH (09:26)
[2022-06-10] MEDS: MULTIVITAMINS/MINERALS TAB PO SCH (09:26)
[2022-06-10] MEDS: DILTIAZEM HCL ER 120 MG CAP PO SCH (09:26)
[2022-06-10 11:47] VITALS: BP 108/76
[2022-06-10] MEDS ORDERED: DILTIAZEM 24HR120 M1 PO (15:30)
[2022-06-10] MEDS ORDERED: ZITHROMAX250 MG PO (15:37)
[2022-06-10] MEDS ORDERED: PREDNISONE20 MG PO (15:38)
== END 2022-06-10 15:55 | disposition home or self-care (01) | DRG 192 ==
LOC: ER 15:50 → ERHOLD 17:40 → MED/SURG2 22:36 → OBSVTOIN 06-09 23:42
PROVIDERS: ADMIT Internal Medicine; ATTEND Internal Medicine
DX: J43.9 Emphysema, unspecified (principal); F10.10 Alcohol abuse, uncomplicated; Z87.891 Personal history of nicotine dependence; R07.89 Other chest pain; R00.0 Tachycardia, unspecified; Z20.822 Contact with and (suspected) exposure to COVID-19; I25.10 Atherosclerotic heart disease of native coronary artery without angina pectoris; K21.9 Gastro-esophageal reflux disease without esophagitis; Z95.5 Presence of coronary angioplasty implant and graft; F41.9 Anxiety disorder, unspecified; G47.00 Insomnia, unspecified; F10.20 Alcohol dependence, uncomplicated; E83.52 Hypercalcemia; E87.6 Hypokalemia; E83.42 Hypomagnesemia; G25.0 Essential tremor; J92.0 Pleural plaque with presence of asbestos; I11.9 Hypertensive heart disease without heart failure
CPT/HCPCS: 36415; 71260; 80048; 80053; 80061; 82550; 82553; 83036; 83735; 83880; 84100; 84443; 84484; 85025; 85610; 85730; 87040; 93005; 93306; 94640; 94799; 99252; 99284; G0378; J0696; J2060; J2930; J3411; J7050; Q9967

== ENCOUNTER 2022-07-14 15:15 | Emergency (ER) | payer BC ==
[~2022-07-14] VITALS: Ht 172.7 cm; Wt 77.6 kg
[~2022-07-14 15:15] MED LIST changes: +DILTIAZEM 24HR120 M1 PO; +PREDNISONE20 MG PO; +ZITHROMAX250 MG PO
[2022-07-14 16:08] LABS: BASOPHILS # (AUTO) 0.1 (0.0-0.1); BASOPHILS % 1.2 % (0.0-1.0); EOSINOPHILS # (AUTO) 0.4 (0.0-0.4); EOSINOPHILS % 5.5 % (0.0-6.0); HEMOGLOBIN 14.2 g/dL (14.0-18.0); LYMPHOCYTES # (AUTO) 1.2 (1.0-3.2); LYMPHOCYTES % 16.3 % (18.0-39.1); MEAN CORPUSCULAR HEMOGLOBIN 32.6 pg (28-32); MEAN CORPUSCULAR HGB CONC 35.5 g/dL (31-35); MONOCYTES # (AUTO) 0.8 (0.2-0.8); MONOCYTES % 10.9 % (4.4-11.3); NEUTROPHILS # (AUTO) 4.9 (2.1-6.9); NEUTROPHILS % 65.8 % (38.7-80.0); PLATELET COUNT 222 x10e3/uL (140-360); RED BLOOD COUNT 4.35 x10e6/uL (4.3-5.7); RED CELL DISTRIBUTION WIDTH 13.4 % (11.7-14.4)
[2022-07-14] MEDS ORDERED: ASPIRIN 81 MG CHEW TAB PO ONE (16:15)
[2022-07-14] MEDS ORDERED: LORAZEPAM INJ 2 MG/ML VIAL IV ONE (16:15)
[2022-07-14] MEDS ORDERED: SODIUM CHLORIDE FLUSH 10 ML SYR IV PRN (16:15)
[2022-07-14 16:20] LABS: ALBUMIN 4.4 g/dL (3.5-5.0); ALBUMIN/GLOBULIN RATIO 1.3 (0.8-2.0); ANION GAP 23.3 mmol/L (8-16); CALCIUM 9.8 mg/dL (8.4-10.2); CREATININE, SERUM 0.72 mg/dL (0.72-1.25); POTASSIUM 3.3 mmol/L (3.5-5.1)
[2022-07-14 17:27] LABS: CLARITY,URINE CLEAR (CLEAR); COLOR,URINE YELLOW (YELLOW); KETONES,URINE NEGATIVE (NEGATIVE); LEUKOCYTE ESTERASE ,URINE NEGATIVE (NEGATIVE); NITRITE,URINE NEGATIVE (NEGATIVE); PROTEIN,URINE DIPSTICK NEGATIVE (NEGATIVE); URINE UROBILINOGEN 0.2 mg/dL (0.2 - 1)
[2022-07-14] MEDS ORDERED: SODIUM CHLORIDE 0.9% 1000ML 1,000 ML IV ONE (18:00)
[2022-07-14] MEDS ORDERED: IOPAMIDOL 370 MG/ML 100 ML INFUS..BTL INJ ONE (18:05)
[2022-07-14 19:50] VITALS: BP 123/76; PULSE 103; RESP 16; TEMP 99; O2SAT 100
== END 2022-07-14 19:59 | disposition home or self-care (01) ==
LOC: ER 15:21
DX: R00.0 Tachycardia, unspecified (principal); F10.129 Alcohol abuse with intoxication, unspecified; J44.9 Chronic obstructive pulmonary disease, unspecified; I25.10 Atherosclerotic heart disease of native coronary artery without angina pectoris; F41.9 Anxiety disorder, unspecified; Z95.5 Presence of coronary angioplasty implant and graft
CPT/HCPCS: 36415; 70496; 71045; 80053; 80320; 81001; 83880; 84484; 85025; 93005; 94760; 99284; J2060; J7030; Q9967

== ENCOUNTER → 2023-01-12 | Day surgery (SDC) | payer BC ==
[~2023-01-12] MED LIST changes: +ASPIRIN81 MG PO; +CEPHALEXIN500 MG PO; +FENTANYL CITRATE/PF 100MCG/2 ML INJ ONE; +Folic Acid PO; +IOPAMIDOL 200 MG/ML 20 ML VIAL IT ONE; +LACTATED RINGER'S 1,000 ML ONE; +LIDOCAINE HCL 1% 30ML-PF VIAL ONE; +LIDOCAINE HCL 2% LOCAL INJ 5 ML SDV VIAL INJ ONE; +PANTOPRAZOLE SO40 MG PO; +PROPOFOL IV EMULSION 10 MG/ML 20 ML VIAL ONE; +TRIAMCINOLONE ACET 40 MG/ML VIAL ONE; +VITAMIN B-121000 MCG PO
[2023-01-12 06:48] VITALS: TEMP 97
[2023-01-12 07:00] VITALS: BP 118/78; PULSE 76; RESP 16; O2SAT 98
== END | disposition home or self-care (01) ==
LOC: OR 06:02
PROVIDERS: ATTEND Physical Medicine & Rehabilitation Pain Medicine
DX: M47.892 Other spondylosis, cervical region (principal); M18.12 Unilateral primary osteoarthritis of first carpometacarpal joint, left hand; M54.12 Radiculopathy, cervical region; M46.1 Sacroiliitis, not elsewhere classified; M54.81 Occipital neuralgia; L72.8 Other follicular cysts of the skin and subcutaneous tissue; M79.644 Pain in right finger(s); G47.30 Sleep apnea, unspecified; D64.9 Anemia, unspecified; J44.9 Chronic obstructive pulmonary disease, unspecified; I25.10 Atherosclerotic heart disease of native coronary artery without angina pectoris; I10 Essential (primary) hypertension; Z79.82 Long term (current) use of aspirin; Z79.899 Other long term (current) drug therapy; Z99.81 Dependence on supplemental oxygen; Z98.61 Coronary angioplasty status
CPT/HCPCS: 64490; 64491; 64492; J2001 ×2; J2704; J3010; J3301; J7121; Q9967; 77002

== ENCOUNTER 2023-05-17 14:45 | Outpatient (RCR) | payer BC ==
[~2023-05-17 14:45] MED LIST changes: -FENTANYL CITRATE/PF 100MCG/2 ML INJ ONE; -IOPAMIDOL 200 MG/ML 20 ML VIAL IT ONE; -LACTATED RINGER'S 1,000 ML ONE; -LIDOCAINE HCL 1% 30ML-PF VIAL ONE; -LIDOCAINE HCL 2% LOCAL INJ 5 ML SDV VIAL INJ ONE; -PROPOFOL IV EMULSION 10 MG/ML 20 ML VIAL ONE; -TRIAMCINOLONE ACET 40 MG/ML VIAL ONE
== END 2023-06-13 ==
LOC: RESP 14:45
PROVIDERS: ATTEND Internal Medicine
DX: J44.9 Chronic obstructive pulmonary disease, unspecified (principal)
CPT/HCPCS: 94626 ×3; G0238 ×3

== ENCOUNTER 2023-07-19 15:25 | Outpatient (RCR) | payer BC | END 2023-08-13 | LOC: RESP 15:25 | PROVIDERS: ATTEND Internal Medicine | DX: J44.9 Chronic obstructive pulmonary disease, unspecified (principal) | CPT/HCPCS: 94626 ×4; G0238 ×4 ==

== ENCOUNTER 2023-09-08 01:03 | Inpatient (IN) | payer BC ==
[~2023-09-08] VITALS: Ht 185.4 cm; Wt 77.6 kg
[2023-09-08] VITALS (7 sets, daily range): BP systolic 137–150; BP diastolic 93–98; PULSE 92–109; RESP 14–20; TEMP 98–98.6; O2SAT 98–100
[2023-09-08 01:36] LABS: BASOPHILS # (AUTO) 0.1 (0.0-0.1); BASOPHILS % 0.5 % (0.0-1.0); EOSINOPHILS # (AUTO) 0.2 (0.0-0.4); EOSINOPHILS % 1.6 % (0.0-6.0); HEMATOCRIT 44.9 % (38.2-49.6); HEMOGLOBIN 15.7 g/dL (14.0-18.0); LYMPHOCYTES # (AUTO) 1.1 (1.0-3.2); LYMPHOCYTES % 10.1 % (18.0-39.1); MEAN CORPUSCULAR HEMOGLOBIN 32.6 pg (28-32); MEAN CORPUSCULAR VOLUME 93.2 fL (81-99); NEUTROPHILS # (AUTO) 8.8 (2.1-6.9); NEUTROPHILS % 78.5 % (38.7-80.0); PLATELET COUNT 283 x10e3/uL (140-360); RED BLOOD COUNT 4.82 x10e6/uL (4.3-5.7); RED CELL DISTRIBUTION WIDTH 13.3 % (11.7-14.4); WHITE BLOOD COUNT 11.17 x10e3/uL (4.8-10.8)
[2023-09-08] MEDS: ONDANSETRON HCL INJ 2MG/ML 2ML 2 MG/ML VIAL IV STA (01:38)
[2023-09-08] MEDS: Morphine 4mg INJECTION 4 MG/ML INJ IV STA (01:38)
[2023-09-08] MEDS ORDERED: PIPERACILLIN/TAZOBACTAM 3.375 GM VIAL ONE (01:41)
[2023-09-08 01:55] LABS: ALBUMIN 4.2 g/dL (3.5-5.0); ALBUMIN/GLOBULIN RATIO 1.1 (0.8-2.0); ANION GAP 22.2 mmol/L (8-16); BILIRUBIN,TOTAL 0.4 mg/dL (0.2-1.2); CALCIUM 9.8 mg/dL (8.4-10.2); CREATININE, SERUM 0.79 mg/dL (0.72-1.25); POTASSIUM 3.2 mmol/L (3.5-5.1); TOTAL PROTEIN 7.9 g/dL (6.5-8.1)
[2023-09-08] MEDS ORDERED: IOPAMIDOL 370 MG/ML 100 ML INFUS..BTL INJ ONE (02:24)
[2023-09-08] MEDS: FENTANYL CITRATE/PF 100MCG/2 ML INJ IV STA (03:03)
[2023-09-08] MEDS: SODIUM CHLORIDE 0.9% 1000ML 1,000 ML IV SCH (03:23)
[2023-09-08 04:20] LABS: CLARITY,URINE CLEAR (CLEAR); COLOR,URINE YELLOW (YELLOW)
[2023-09-08 04:21] LABS: BILIRUBIN,URINE NEGATIVE (NEGATIVE); GLUCOSE, URINE NEGATIVE (NEGATIVE); KETONES,URINE NEGATIVE (NEGATIVE); LEUKOCYTE ESTERASE ,URINE NEGATIVE (NEGATIVE); NITRITE,URINE NEGATIVE (NEGATIVE); PH,URINE 7 (5 - 7); PROTEIN,URINE DIPSTICK NEGATIVE (NEGATIVE); URINE UROBILINOGEN 0.2 mg/dL (0.2 - 1)
[2023-09-08 04:23] LABS: BACTERIA,URINE RARE /HPF; EPITHELIAL CELLS,URINE RARE /LPF; RBC,URINE 0-5 /HPF (0-5); WBC,URINE (MAN) 0-5 /HPF (0-5)
[2023-09-08] MEDS: BENZOCAINE 20% SPR 60 ML CAN MT ONE (04:47)
[2023-09-08] MEDS: Morphine 4mg INJECTION 4 MG/ML INJ IV PRN (04:57)
[2023-09-08] MEDS: ONDANSETRON HCL INJ 2MG/ML 2ML 2 MG/ML VIAL IV PRN (04:57)
[2023-09-08 10:51] LABS: BASOPHILS # (AUTO) 0.1 (0.0-0.1); BASOPHILS % 0.3 % (0.0-1.0); EOSINOPHILS % 0.2 % (0.0-6.0); HEMATOCRIT 43.4 % (38.2-49.6); HEMOGLOBIN 14.9 g/dL (14.0-18.0); LYMPHOCYTES # (AUTO) 0.4 (1.0-3.2); LYMPHOCYTES % 2.8 % (18.0-39.1); MEAN CORPUSCULAR HEMOGLOBIN 32.6 pg (28-32); MEAN CORPUSCULAR HGB CONC 34.3 g/dL (31-35); MONOCYTES # (AUTO) 1.1 (0.2-0.8); MONOCYTES % 7.6 % (4.4-11.3); NEUTROPHILS # (AUTO) 13.2 (2.1-6.9); NEUTROPHILS % 88.8 % (38.7-80.0); PLATELET COUNT 243 x10e3/uL (140-360); RED BLOOD COUNT 4.57 x10e6/uL (4.3-5.7); RED CELL DISTRIBUTION WIDTH 13.7 % (11.7-14.4)
[2023-09-08 11:14] LABS: ALBUMIN 3.9 g/dL (3.5-5.0); ALBUMIN/GLOBULIN RATIO 1.1 (0.8-2.0); ANION GAP 21.2 mmol/L (8-16); BILIRUBIN,TOTAL 0.6 mg/dL (0.2-1.2); CALCIUM 9.4 mg/dL (8.4-10.2); CREATININE, SERUM 0.7 mg/dL (0.72-1.25); TOTAL PROTEIN 7.5 g/dL (6.5-8.1)
[2023-09-08 11:15] LABS: POTASSIUM 3.2 mmol/L (3.5-5.1)
[2023-09-08] MEDS ORDERED: METOPROLOL TARTRATE INJ 1 MG/ML VIAL IV PRN (15:45)
[2023-09-08] MEDS: POTASSIUM CHLORIDE 20MEQ/100ML 100 ML IV ONE (16:41)
[2023-09-08] MEDS ORDERED: CHLORASEPTIC SPRAY 177 ML BTL MM PRN (17:30)
[2023-09-08] MEDS: BISACODYL 10 MG SUPP PR SCH (20:16)
[2023-09-09] VITALS (8 sets, daily range): BP systolic 134–154; BP diastolic 87–103; PULSE 86–95; RESP 16–18; TEMP 97.8–98.3; O2SAT 98–100
[2023-09-09 09:25] LABS: BASOPHILS % 0.1 % (0.0-1.0); EOSINOPHILS # (AUTO) 0.2 (0.0-0.4); EOSINOPHILS % 1.7 % (0.0-6.0); HEMATOCRIT 42.3 % (38.2-49.6); HEMOGLOBIN 14.2 g/dL (14.0-18.0); LYMPHOCYTES # (AUTO) 0.5 (1.0-3.2); LYMPHOCYTES % 4.9 % (18.0-39.1); MEAN CORPUSCULAR HEMOGLOBIN 32.4 pg (28-32); MEAN CORPUSCULAR HGB CONC 33.6 g/dL (31-35); MEAN CORPUSCULAR VOLUME 96.6 fL (81-99); MONOCYTES # (AUTO) 0.7 (0.2-0.8); MONOCYTES % 7.4 % (4.4-11.3); NEUTROPHILS # (AUTO) 8.4 (2.1-6.9); NEUTROPHILS % 85.5 % (38.7-80.0); PLATELET COUNT 224 x10e3/uL (140-360); RED BLOOD COUNT 4.38 x10e6/uL (4.3-5.7); RED CELL DISTRIBUTION WIDTH 13.5 % (11.7-14.4); WHITE BLOOD COUNT 9.87 x10e3/uL (4.8-10.8)
[2023-09-09 09:46] LABS: ANION GAP 18.7 mmol/L (8-16); CALCIUM 9.5 mg/dL (8.4-10.2); CREATININE, SERUM 0.69 mg/dL (0.72-1.25)
[2023-09-09 09:56] LABS: POTASSIUM 2.7 mmol/L (3.5-5.1)
[2023-09-09] MEDS: POTASSIUM CHLORIDE 20MEQ/100ML 100 ML IV ONE ×2 (10:18→19:28)
[2023-09-09] MEDS ORDERED: POTASSIUM CHLORIDE 20MEQ/100ML 100 ML ONE (19:28)
[2023-09-09] MEDS: BISACODYL 10 MG SUPP PR SCH (20:49)
[2023-09-10] VITALS (9 sets, daily range): BP systolic 118–158; BP diastolic 79–101; PULSE 85–98; RESP 16–20; TEMP 97.7–99.1; O2SAT 100
[2023-09-10 06:26] LABS: BASOPHILS % 0.3 % (0.0-1.0); EOSINOPHILS # (AUTO) 0.2 (0.0-0.4); EOSINOPHILS % 2.4 % (0.0-6.0); HEMOGLOBIN 14.9 g/dL (14.0-18.0); LYMPHOCYTES # (AUTO) 0.6 (1.0-3.2); MEAN CORPUSCULAR HEMOGLOBIN 32.7 pg (28-32); MEAN CORPUSCULAR HGB CONC 33.1 g/dL (31-35); MEAN CORPUSCULAR VOLUME 98.7 fL (81-99); MONOCYTES # (AUTO) 0.8 (0.2-0.8); MONOCYTES % 8.9 % (4.4-11.3); NEUTROPHILS # (AUTO) 7.3 (2.1-6.9); NEUTROPHILS % 81.2 % (38.7-80.0); PLATELET COUNT 247 x10e3/uL (140-360); RED BLOOD COUNT 4.56 x10e6/uL (4.3-5.7); RED CELL DISTRIBUTION WIDTH 13.6 % (11.7-14.4); WHITE BLOOD COUNT 8.98 x10e3/uL (4.8-10.8)
[2023-09-10 06:39] LABS: CALCIUM 11.4 mg/dL (8.4-10.2); CREATININE, SERUM 0.72 mg/dL (0.72-1.25); MAGNESIUM 1.8 MG/DL (1.3-2.1)
[2023-09-10 10:38] LABS: POTASSIUM 3.3 mmol/L (3.5-5.1)
[2023-09-10 10:58] LABS: ANION GAP 28.3 mmol/L (8-16)
[2023-09-10] MEDS: POTASSIUM CHLORIDE 20MEQ/100ML 200 ML IV ONE (12:00)
[2023-09-10] MEDS: BISACODYL 10 MG SUPP PR SCH (20:23)
[2023-09-10] MEDS ORDERED: ZETIA10 MG PO (21:34)
[2023-09-10] MEDS ORDERED: CORLANOR5 MG PO (21:34)
[2023-09-10] MEDS ORDERED: BACLOFEN10 MG PO (21:35)
[2023-09-10] MEDS ORDERED: NITROGLYCERIN0.4 MG SL (21:36)
[2023-09-10] MEDS ORDERED: SPIRONOLACTONE25 MG PO (21:36)
[2023-09-10] MEDS ORDERED: HYDRALAZINE HCL 20 MG/ML VIAL IV PRN (21:45)
[2023-09-10] MEDS: LOSARTAN POTASSIUM 100 MG TAB PO SCH (22:02)
[2023-09-11 00:46] VITALS: BP 150/93; PULSE 88; RESP 18; TEMP 98.1; O2SAT 100
[2023-09-11 04:00] VITALS: BP 151/99; PULSE 104; RESP 18; TEMP 97.3; O2SAT 98
[2023-09-11 06:22] LABS: BASOPHILS % 0.4 % (0.0-1.0); EOSINOPHILS # (AUTO) 0.3 (0.0-0.4); EOSINOPHILS % 3.4 % (0.0-6.0); HEMATOCRIT 43.4 % (38.2-49.6); HEMOGLOBIN 14.2 g/dL (14.0-18.0); LYMPHOCYTES # (AUTO) 0.7 (1.0-3.2); LYMPHOCYTES % 8.4 % (18.0-39.1); MEAN CORPUSCULAR HEMOGLOBIN 32.3 pg (28-32); MEAN CORPUSCULAR HGB CONC 32.7 g/dL (31-35); MEAN CORPUSCULAR VOLUME 98.9 fL (81-99); MONOCYTES % 11.4 % (4.4-11.3); NEUTROPHILS # (AUTO) 6.4 (2.1-6.9); NEUTROPHILS % 76.2 % (38.7-80.0); PLATELET COUNT 211 x10e3/uL (140-360); RED BLOOD COUNT 4.39 x10e6/uL (4.3-5.7); RED CELL DISTRIBUTION WIDTH 13.5 % (11.7-14.4); WHITE BLOOD COUNT 8.45 x10e3/uL (4.8-10.8)
[2023-09-11 06:58] LABS: ALBUMIN 3.3 g/dL (3.5-5.0); ALBUMIN/GLOBULIN RATIO 0.9 (0.8-2.0); ANION GAP 18.4 mmol/L (8-16); BILIRUBIN,TOTAL 0.8 mg/dL (0.2-1.2); CREATININE, SERUM 0.66 mg/dL (0.72-1.25); TOTAL PROTEIN 6.9 g/dL (6.5-8.1)
[2023-09-11 06:59] LABS: POTASSIUM 3.4 mmol/L (3.5-5.1)
[2023-09-11 08:53] VITALS: BP 121/81; PULSE 92; RESP 17; TEMP 97.8; O2SAT 100
[2023-09-11] MEDS: DILTIAZEM HCL ER 120 MG CAP PO SCH (09:01)
[2023-09-11] MEDS: ISOSORBIDE MONONITRATE 30 MG TAB CR PO SCH (09:02)
[2023-09-11] MEDS: NIFEDIPINE CR 30 MG TAB PO SCH (09:02)
[2023-09-11 12:00] VITALS: BP 125/88; PULSE 106; RESP 17; TEMP 98; O2SAT 100
[2023-09-11] MEDS: POTASSIUM CHLORIDE 10MEQ EA PO ONE (14:15)
[2023-09-11 16:00] VITALS: BP 107/64; PULSE 95; RESP 17; TEMP 97.9; O2SAT 100
[2023-09-11 16:58] VITALS: BP 107/64; PULSE 95
== END 2023-09-11 20:33 | disposition home or self-care (01) | DRG 390 ==
LOC: ER 01:10 → ERHOLD 02:52 → MED/SURG3 13:14
PROVIDERS: ADMIT Internal Medicine; ATTEND Internal Medicine
DX: K56.609 Unspecified intestinal obstruction, unspecified as to partial versus complete obstruction (principal); E87.6 Hypokalemia; I10 Essential (primary) hypertension; J44.9 Chronic obstructive pulmonary disease, unspecified; Z99.81 Dependence on supplemental oxygen; I25.10 Atherosclerotic heart disease of native coronary artery without angina pectoris; E78.5 Hyperlipidemia, unspecified; K21.9 Gastro-esophageal reflux disease without esophagitis; Z11.52 Encounter for screening for COVID-19; F41.9 Anxiety disorder, unspecified; Z79.82 Long term (current) use of aspirin; Z79.51 Long term (current) use of inhaled steroids; Z95.5 Presence of coronary angioplasty implant and graft; I25.2 Old myocardial infarction; Z90.49 Acquired absence of other specified parts of digestive tract; Z87.891 Personal history of nicotine dependence; Z82.49 Family history of ischemic heart disease and other diseases of the circulatory system
CPT/HCPCS: 36415; 71045; 74018; 74022; 74177; 80048; 80053; 81001; 83690; 83735; 83880; 85025; 93005; 99284; J2270; J2405; J2470; J2543; J3480; J7030; Q9967; U0002

== ENCOUNTER 2023-10-11 13:00 | Outpatient (RCR) | payer BC ==
[~2023-10-11 13:00] MED LIST changes: +CORLANOR5 MG PO; +NITROGLYCERIN0.4 MG SL; +SPIRONOLACTONE25 MG PO; +ZETIA10 MG PO
== END 2023-10-14 ==
LOC: RESP 13:00
DX: J44.9 Chronic obstructive pulmonary disease, unspecified (principal)
CPT/HCPCS: 94626 ×2; G0238 ×2

== ENCOUNTER 2023-11-01 13:00 | Outpatient (RCR) | payer BC | END 2023-11-13 | LOC: RESP 13:00 | DX: J44.9 Chronic obstructive pulmonary disease, unspecified (principal) | CPT/HCPCS: 94626 ×2; G0238 ×2 ==

== ENCOUNTER 2023-12-06 12:59 | Outpatient (RCR) | payer BC | END 2023-12-14 | LOC: RESP 12:59 | DX: J44.9 Chronic obstructive pulmonary disease, unspecified (principal) | CPT/HCPCS: 94626 ×2; G0238 ×2 ==

== ENCOUNTER 2024-01-03 13:00 | Outpatient (RCR) | payer BC | END 2024-01-13 | LOC: RESP 13:00 | DX: J44.9 Chronic obstructive pulmonary disease, unspecified (principal) ==